=== PATIENT | female | born 1985 | race Caucasian/White ===

== ENCOUNTER 2024-08-07 17:57 | Emergency (ER) | payer OTHER, SELFPAY ==
[2024-08-07 18:08] VITALS: BP 125/81
--- NOTE | 2024-08-07 20:05 | ED.GENMED ---
History of Present Illness
General
Chief Complaint: Throat Problem
Time Seen by Provider: 08/07/24 19:00
History of Present Illness
History of Present Illness:
patient is a 38-year-old woman presenting to the emergency department with sore throat and rash. Patient states that 4 days ago she woke up with exudates on her tonsil. 3 days ago went to an urgent care tested negative for strep but was started on
amoxicillin. She felt worse 2 days ago went to her primary care doctor. She had difficulty swallowing so started on prednisone. She was told that her monotest was positive but she was also positive for strep. She has had mono before. The same day
urgent care called stating that her culture was negative. Yesterday she developed a rash to her entire body including her hands and her mouth. She did stop taking the antibiotics yesterday after the rash occurred. She does state that she also had
a oil of oregano and that an allergic reaction from it can be hypersensitivity skin reaction which she has noticed. She has been taking Benadryl with some relief. No recent travel fevers chills cough sloughing of her skin. She did notice that the
rash was on her hand almost like awvf-fuyz-mmy-mouth. She does have school-aged children. She denies any numbness tingling. I did review patient's blood work. Her antistreptolysin titer was 260. Her mono IgM was negative but her other
antibodies were positive but she does have history of mono when she was younger. She does state that these are the results that her doctor told her were positive for both strep and mono.
Past History
Past History
ED Past Medical History: Other (Pyelonephritis, eating disorder) and Other (Migraine headaches, bulimia)
ED Past Surgical History: None; Negative Appendectomy
Social History
Tobacco: Non-smoker
Alcohol: None
Drug: None
Personal: Single
Living: with family
Employment: Employed
Family History
Family History: Hypertension
Phy Exam
Physical Exam
Physical Exam:
GENERAL: in no acute distress
HEENT: normocephalic, extraocular movements intact, moist oral mucosa, erythematous posterior oropharynx
NECK: normal inspection
RESPIRATORY: no respiratory distress, clear to auscultation bilaterally
CARDIOVASCULAR: regular rate and rhythm
ABDOMEN/: soft, non-distended, non-tender to palpation, no rebound or guarding
EXTREMITIES: non-tender, no edema/swelling
NEUROLOGIC: awake and alert, moves all extremities
SKIN: warm, macular papular rash to the chest arm abdomen with the beginnings of a maculopapular rash to the bilateral hands. No obvious vesicles, mouth and eyes are clear
Course
Orders/Labs/Results
Orders:
Orders
08/07/24 20:24
Rapid Strep Group A Urgent
JACKIE Source: Throat/Pharynx
Specimen Description:
Date Specimen was Collected: 08/07/24
Time Specimen was Collected: 20:22
Throat Culture, Comprehensive Urgent
JACKIE Source: Throat/Pharynx
Specimen Description:
Date Specimen was Collected: 08/07/24
Time Specimen was Collected: 20:22
08/07/24 20:25
Gerald-Ovalle Virus Ab Panel I [S] Urgent
Gerald-Ovalle Virus VCA IgG [S] Urgent
Gerald-Ovalle Virus VCA IgM Ab [S] Urgent
Monotest Urgent
08/07/24 21:47
Prednisone [Deltasone] 40 mg PO NOW STA
Vital Signs
Initial and Last Documented VS:
Initial Vital Signs
Temp Pulse Resp BP Pulse Ox
98.5 F 88 20 125/81 100
08/07/24 18:08 08/07/24 18:08 08/07/24 18:08 08/07/24 18:08 08/07/24 18:08
Last Documented Vital Signs
Temp Pulse Resp BP Pulse Ox
98.5 F 88 20 125/81 100
08/07/24 18:08 08/07/24 18:08 08/07/24 18:08 08/07/24 18:08 08/07/24 20:05
MDM/Problems Addressed
Differential Diagnosis Includes:
Patient is a 38-year-old woman presenting to the emergency department with a rash sore throat. Vitals are unremarkable and exam does show a slightly erythematous posterior oropharynx but uvula is midline and she is protecting her airway. She does
have a maculopapular rash to her chest arms as well as the beginnings of a rash on her hands. No sloughing of her skin. Given that her symptoms have been improving and she stopped taking the antibiotics it could be mono. Especially given that she
developed a rash after started taking the amoxicillin. However given that her antistreptolysin titer was elevated but her IgM was negative will repeat culture here as well as blood testing here for further clarity. In the interim I did advise
patient to stop taking the antibiotics and to continue taking the steroids. Regarding the rash certainly could be secondary to amoxicillin with mono (though unclear if patient does have reactivation of mono given her blood work). Could also be
secondary to the oil of oregano as she does state that she is been having hypersensitivity which is a known allergic reaction from it. In the interim we will have patient keep taking steroids and Benadryl given the skin sensitivity. The rash could
also be secondary to lpxg-ekln-ypj-mouth given the location and it could be the beginnings of it. Does not seem like any sinister etiology of rash such as SJS 10 staphylococcal scalded skin syndrome or measles. After shared decision making we will
send repeat blood work for EBV as well as rapid strep and culture.
*Pulse Oximetry
SaO2: 100
Oxygen Mode of Delivery: Room air
Patient hypoxic: no (100)
*Critical Care Note
Total Time (30-74mins, 75-104mins- exclusive of procedures): Not Applicable
Update Note
Update Note:
On reevaluation patient states that her skin has become more sensitive. After shared decision making we will increase her steroids from a Medrol Dosepak to 40 mg for 5 days. Will give first dose here. Her monoscreen was negative. Her rapid strep
was negative. Strep culture pending. I did send off further antibody and antigen testing regarding the confusion the patient's initial mono even though the monoscreen here was negative. Patient advised that management will not change at this time.
Will discharge patient at this time. Ultimately the plan was to treat as an allergic reaction with the beginnings of a yext-gksj-tdf-mouth given the rash specifically on her hands. Patient aware of strict return precautions.
ED Attending Note
-
Portions of this chart may have been created with voice recognition software.� Occasional wrong word or��sound alike� substitutions may have occurred due to the inherent limitations of voice recognition software.
Discharge Plan
Departure
Patient Disposition: Home (Routine Discharge)
Date of Disposition: 08/07/24
Time of Disposition: 21:47
Patient with high blood pressure during this ER visit?: No
Discharge Problem:
Allergic reaction, Hand, foot, and mouth disease
Instructions: Allergic reaction - ED discharge instructions
Prescriptions:
New
prednisone 20 mg tablet
40 mg PO DAILY 4 Days Qty: 8 0RF
No Action
dqd50-zhob-rmmxm acid [PreNata] 1 EACH tablet,chewable
1 ea PO DAILY
L.acidoph,paracasei,B.animalis 1 EACH capsule
1 ea PO DAILY
sennosides-docusate sodium 1 TABLET tablet
1 tab PO DAILYPRN PRN (Reason: constipation) 0RF
ibuprofen 600 MG tablet
600 mg PO Q4HPRN PRN (Reason: moderate pain/cramps) 0RF
Referrals:
NONE,* [Active, Internal Medicine]
Activity Restrictions/Additional Instructions:
You were seen in the Emergency Department today for a skin rash and sore throat. While you were here we performed blood work, which was reassuring. We will call you if your strep culture is positive. Your monoscreen was negative. I did increase
your steroids to 40 mg. Your first dose was given here in the emergency department.
We would like for you to follow up with your primary care physician for further evaluation. If you experience fever, worsening of your symptoms, or develop any other new or concerning symptoms, please return to the Emergency Department immediately.
Please see the attached sheet for additional information.
Interventions
Interventions:
*Risk Screen - Suicide Last Done: 08/07/24 18:08
*General Assessment Last Done: 08/07/24 18:08
*Neglect/Abuse Screening Last Done: 08/07/24 18:08
Discharge Date and Time
Print Language: ERITREAN
[2024-08-07 21:00] LABS: Monotest Negative (Negative)
[2024-08-07] MEDS: DELTASONE 40 MG PO (21:58)
[2024-08-07 22:07] VITALS: BP 132/71
[2024-08-10 04:35] LABS: EBV-EA (D) Ab IgG 42.8 U/mL (0.0-10.9); EBV-NA IgG >600.0 U/mL (0.0-21.9); EBV-VCA IgM Antibodies <10.0 U/mL (0.0-43.9)
== END 2024-08-07 22:08 | disposition home or self-care (01) ==
LOC: EMR 17:57
PROVIDERS: EMERGENCY PHYSICIAN Student in an Organized Health Care Education/Training Program; FAMILY PHYSICIAN Family Medicine Sports Medicine
DX: R07.0 Pain in throat (principal); R21 Rash and other nonspecific skin eruption
CPT/HCPCS: 99282; 86308; 86663; 86664; 86665; 87070; 87880

== ENCOUNTER 2024-08-09 16:11 | Emergency (ER) | payer OTHER, SELFPAY ==
[2024-08-09 16:15] VITALS: BP 128/82
--- NOTE | 2024-08-09 18:38 | ED.GENMED ---
History of Present Illness
<SUDHA Franklin - Last Filed: 08/09/24 20:39>
General
Chief Complaint: Skin Problem
Source: patient
Exam Limitations: none
Time Seen by Provider: 08/09/24 17:46
Nursing documentation reviewed up to this point in time: agreed with
History of Present Illness
History of Present Illness:
Patient is a 38 yr old female who presents back to the ER for evaluation. Patient initially started with a sore throat a week ago was initially placed on amoxicillin for strep but after following up with her doctor her strep test was negative and
she stopped amoxicillin on Sunday. On Sunday was given a dose of prednisone by her family doctor. She presented to the ER on for rash and was given 1 dose of prednisone here in the ER. She was given a prescription but told that she
could hold off if she wanted to and has not taken the steroid since.
She presents back today with worsening rash and hives to her back and redness to her ears and face.
Her mono and strep test were both negative from the ER visit 2 days ago.
She has not had any fevers she does have a very minimal sore throat now. She denies any difficulty breathing denies any lip or tongue swelling. Denies any neck pain or for sensitivity.
Past History
<SUDHA Franklin - Last Filed: 08/09/24 20:39>
Past History
ED Past Medical History: Other (Pyelonephritis, eating disorder) and Other (Migraine headaches, bulimia)
ED Past Surgical History: None; Negative Appendectomy
Social History
Tobacco: Non-smoker
Alcohol: None
Drug: None
Personal: Single
Living: with family
Employment: Employed
Family History
Family History: Hypertension
Review of Systems
<SUDHA Franklin - Last Filed: 08/09/24 20:39>
Review of Systems
Allergies reviewed?: Yes
All Other Systems: ROS reviewed and negative except as documented in HPI and ROS
Constitutional: Reports no symptoms
Phy Exam
<SUDHA Franklin - Last Filed: 08/09/24 20:39>
General Physical Exam
General Presentation: no apparent distress
General age: appears stated age
General Skin: warm and dry
General Habitus: normal
General Mental: alert
General Hydration: appears well hydrated
ENT Exam
ENT Exam: EOMI, pharynx normal, neck supple and other (No lip or tongue swelling)
Additional ENT: pt with redness to b/l auricles
Cardiovascular Exam
Cardiovascular Exam: regular rate/rhythm, no murmur and normal peripheral pulses
Pulmonary Exam
Pulmonary Exam: lungs clear, no respiratory distress, no wheezing and no cough
Neurological Exam
Neurological Exam: alert and oriented x3
Musculoskeletal Exam
Musculoskeletal Exam: full ROM and other (No joint swelling)
Skin Exam
Skin Exam: normal color, warm/dry and other (Scattered hives to back, redness to eyebrows redness/hives to upper chest/abdomen)
Course
<SUDHA Franklin - Last Filed: 08/09/24 20:39>
Orders/Labs/Results
Orders:
Orders
08/09/24 19:45
Dexamethasone Pf [Decadron] 10 mg PO NOW STA
Famotidine [Pepcid] 20 mg PO NOW STA
Vital Signs
Initial and Last Documented VS:
Initial Vital Signs
Temp Pulse Resp BP Pulse Ox
98.4 F 81 18 128/82 99
08/09/24 16:15 08/09/24 16:15 08/09/24 16:15 08/09/24 16:15 08/09/24 16:15
Last Documented Vital Signs
Temp Pulse Resp BP Pulse Ox
98.4 F 69 16 112/74 100
08/09/24 16:15 08/09/24 20:34 08/09/24 20:34 08/09/24 20:34 08/09/24 20:34
Reconciler consulted with Physician
Reconciler consulted with physician?: Yes
Name of Physician Consulted: Dr Barber
<Martínez Barber, - Last Filed: 08/09/24 20:25>
Orders/Labs/Results
Orders:
Orders
08/09/24 19:45
Dexamethasone Pf [Decadron] 10 mg PO NOW STA
Famotidine [Pepcid] 20 mg PO NOW STA
Vital Signs
Initial and Last Documented VS:
Initial Vital Signs
Temp Pulse Resp BP Pulse Ox
98.4 F 81 18 128/82 99
08/09/24 16:15 08/09/24 16:15 08/09/24 16:15 08/09/24 16:15 08/09/24 16:15
Last Documented Vital Signs
Temp Pulse Resp BP Pulse Ox
98.4 F 69 16 112/74 100
08/09/24 16:15 08/09/24 20:34 08/09/24 20:34 08/09/24 20:34 08/09/24 20:34
<SUDHA Farnklin - Last Filed: 08/09/24 20:39>
MDM/Problems Addressed
Differential Diagnosis Includes:
Not limited to viral syndrome, urticaria
MDM/Problems Addressed:
Patient is in no acute distress she has been tested for mono and strep both of which were negative. She started out with a sore throat a week ago and has developed hives. Symptoms are likely from viral syndrome. She has no difficulty breathing
pharynx is normal no meningismus lungs are clear afebrile not hypoxic and no acute distress. Patient was given a dose of oral prednisone here Pepcid. Patient did see telehealth and has a prescription for steroids at the pharmacy for a steroid
taper. I did advise patient to start this tomorrow along with Pepcid. Case discussed with Dr. Barber who evaluated patient agrees with assessment and plan.
She is to return if any worsening of symptoms
<SUDHA Franklin - Last Filed: 08/09/24 20:39>
*Pulse Oximetry
SaO2: 99
Oxygen Mode of Delivery: Room air
Patient hypoxic: no
*Critical Care Note
Total Time (30-74mins, 75-104mins- exclusive of procedures): Not Applicable
ED Attending Note
<SUDHA Franklin - Last Filed: 08/09/24 20:39>
-
Portions of this chart may have been created with voice recognition software.� Occasional wrong word or��sound alike� substitutions may have occurred due to the inherent limitations of voice recognition software.
<Martínez Barber DO - Last Filed: 08/09/24 20:25>
ED Attending Note
Patient seen and examined by attending physician: Yes
I performed the substantive portion of visit, reviewed & personally made and approve the management plan that is documented in note by myself or LUIS ENRIQUE.: Yes
ED Attending Note:
Presents with urticarial rash which is diffuse. No airway involvement. Lungs are clear.
Suspect the patient is having urticarial rash related to a recent viral illness. Agree with Madiha's treatment plan.
Discharge Plan
Departure
Patient Disposition: Home (Routine Discharge)
Date of Disposition: 08/09/24
Time of Disposition: 20:32
Patient with high blood pressure during this ER visit?: No
Condition: Fair
Covid-19: Not Applicable
Discharge Problem:
Acute viral syndrome, Urticaria
Instructions: Hives
Prescriptions:
No Action
yao48-gvnu-uifht acid [PreNata] 1 EACH tablet,chewable
1 ea PO DAILY
L.acidoph,paracasei,B.animalis 1 EACH capsule
1 ea PO DAILY
sennosides-docusate sodium 1 TABLET tablet
1 tab PO DAILYPRN PRN (Reason: constipation) 0RF
ibuprofen 600 MG tablet
600 mg PO Q4HPRN PRN (Reason: moderate pain/cramps) 0RF
prednisone 20 mg tablet
40 mg PO DAILY 4 Days Qty: 8 0RF
Referrals:
Miguel Garsia DO [Family Provider, Family Practice]
Activity Restrictions/Additional Instructions:
As discussed symptoms are likely from viral syndrome. You were given 1 dose of oral Decadron here in the ER and 1 dose of Pepcid.
Start the prescription of steroids that you were given by the telehealth physician tomorrow. In addition you may continue to take Pepcid. Follow-up with family doctor as needed . return if any worsening of symptoms.
Interventions
Interventions:
*Risk Screen - Suicide Last Done: 08/09/24 16:15
*General Assessment Last Done: 08/09/24 17:43
*Neglect/Abuse Screening Last Done: 08/09/24 16:15
*ED- Fall Risk Assessment Last Done: 08/09/24 17:43
*ED COVID-19 Vaccine History Last Done: 08/09/24 17:43
*Nursing Disposition Last Done: 08/09/24 20:36
ED-Skin Assessment Last Done: 08/09/24 20:36
Discharge Date and Time
Print Language: MOHAWK
[2024-08-09] MEDS: PEPCID 20 MG PO (19:49)
[2024-08-09] MEDS: DECADRON 10 MG PO (19:50)
[2024-08-09 20:34] VITALS: BP 112/74
== END 2024-08-09 20:39 | disposition home or self-care (01) ==
LOC: EMR 16:11
PROVIDERS: EMERGENCY PHYSICIAN Emergency Medicine; FAMILY PHYSICIAN Family Medicine Sports Medicine
DX: L50.9 Urticaria, unspecified (principal); B34.9 Viral infection, unspecified; J02.9 Acute pharyngitis, unspecified; G43.909 Migraine, unspecified, not intractable, without status migrainosus; E03.9 Hypothyroidism, unspecified; F50.20 Bulimia nervosa, unspecified; Z88.2 Allergy status to sulfonamides
CPT/HCPCS: 99283

== ENCOUNTER 2024-10-21 10:49 | Emergency (ER) | payer OTHER, SELFPAY ==
[2024-10-21 10:56] VITALS: BP 110/72
[2024-10-21 11:34] LABS: Hematocrit 37.3 % (37.0-47.0); Hemoglobin 12.5 g/dL (12.0-16.0); Mean Corp Hgb Conc. 33.5 g/dL (33.0-37.0); Mean Corpuscular Volume 92.6 fL (81.0-99.0); Nucleated Red Blood Cells % 0 %; Platelet Count 197 10^3/uL (130-400); Red Cell Dist. Width 14.1 % (11.5-14.5)
[2024-10-21 11:43] LABS: HCG, Serum Qualitative Screen Negative
[2024-10-21 11:53] LABS: Urine Character Clear (Clear)
[2024-10-21 12:04] LABS: ALT (SGPT) 25 U/L (0-35); AST (SGOT) 19 U/L (14-36); Albumin 4.5 g/dl (3.5-5.0); Alkaline Phosphatase 61 U/L (38-126); Blood Urea Nitrogen 21 mg/dl (7-17); Calcium 9.5 mg/dl (8.4-10.2); Carbon Dioxide 23 mmol/L (22-30); Chloride 110 mmol/L (98-107); Glucose 91 mg/dl (70-99); Lipase 77 U/L (23-300); Potassium 4.0 mmol/L (3.5-5.1); Sodium 139 mmol/L (135-145); Total Protein 7.1 g/dl (6.3-8.2); eGFR > 60.00
--- NOTE | 2024-10-21 12:34 | ED.GENMED ---
History of Present Illness
<Chet Meneses PA-C - Last Filed: 10/21/24 16:14>
General
Chief Complaint: Abdominal Pain
Source: patient
Exam Limitations: none
Time Seen by Provider: 10/21/24 12:05
History of Present Illness
History of Present Illness:
38-year-old female presents with right-sided abdominal discomfort since 4 days ago she describes as a bubbling sensation in this area. The pain is not made worse with eating. The pain has been intermittent since its onset does not radiate to the
back not pleuritic in nature. She deals with constipation but has been moving her bowels. No urinary symptoms. She also notes occasional vaginal spotting. She could be . No fevers. No chest pain or shortness of breath.
Past History
<BRANDIE Kiran Last Filed: 10/21/24 16:14>
Past History
ED Past Medical History: Other (Pyelonephritis, eating disorder) and Other (Migraine headaches, bulimia)
ED Past Surgical History: None; Negative Appendectomy
Social History
Tobacco: Non-smoker
Alcohol: None
Drug: None
Personal: Single
Living: with family
Employment: Employed
Family History
Family History: Hypertension
Phy Exam
<BRANDIE Kiran Last Filed: 10/21/24 16:14>
Physical Exam
Physical Exam:
General: Well appearing female, NAD
HEENT: NC/AT
Heart: RRR, no murmurs
Lungs; CTA
Abdomen is soft but tender to the right upper quadrant no guarding nondistended no costovertebral angle tenderness
Extremities: No cyanosis or edema
Course
<BRANDIE Kiran Last Filed: 10/21/24 16:14>
Orders/Labs/Results
Orders:
Orders
10/21/24 10:59
EKG [Electrocardiogram (*1)] Urgent
Reason for Study: Palpitations
10/21/24 11:00
EKG- Treatment ONCE
Test Result ONCE
10/21/24 11:14
CBC/With Diff [Complete Blood Count/With Diff] Urgent
CMP [Comprehensive Metabolic Panel] Urgent
HCG, Serum Qualitative Screen Urgent
Lipase Urgent
10/21/24 11:18
Urinalysis Reflex To Culture Urgent
Date Specimen was Collected: 10/21/24
Time Specimen was Collected: 11:00
10/21/24 12:23
US Abdomen Complete/Upper Urgent
Comment:
Reason For Exam: ruq pain
10/21/24 14:41
Iohexol [Omnipaque] See Protocol PO NOW STA
10/21/24 16:12
CT Abd/pel (oral only)-[facility] Only Urgent
Comment:
Reason For Exam: abdominal pain
Iohexol [Omnipaque] See Protocol PO NOW STA
10/21/24 18:09
Lyme Progressive Urgent
Abnormal Lab Results
10/21/24
11:14
RBC 4.03 L 10^6/uL
(4.20-5.40)
MPV 10.6 H fL
(7.4-10.4)
Chloride 110 H mmol/L
(98-107)
BUN 21 H mg/dl
(7-17)
10/21/24 11:14
10/21/24 11:14
Vital Signs
Initial and Last Documented VS:
Initial Vital Signs
Temp Pulse Resp BP Pulse Ox
98.3 F 79 14 110/72 98
10/21/24 10:56 10/21/24 10:56 10/21/24 10:56 10/21/24 10:56 10/21/24 10:56
Last Documented Vital Signs
Temp Pulse Resp BP Pulse Ox
98.3 F 79 14 110/72 98
10/21/24 10:56 10/21/24 10:56 10/21/24 10:56 10/21/24 10:56 10/21/24 12:38
<Krysta England NP - Last Filed: 10/21/24 18:18>
Orders/Labs/Results
Orders:
Orders
10/21/24 10:59
EKG [Electrocardiogram (*1)] Urgent
Reason for Study: Palpitations
10/21/24 11:00
EKG- Treatment ONCE
Test Result ONCE
10/21/24 11:14
CBC/With Diff [Complete Blood Count/With Diff] Urgent
CMP [Comprehensive Metabolic Panel] Urgent
HCG, Serum Qualitative Screen Urgent
Lipase Urgent
10/21/24 11:18
Urinalysis Reflex To Culture Urgent
Date Specimen was Collected: 10/21/24
Time Specimen was Collected: 11:00
10/21/24 12:23
US Abdomen Complete/Upper Urgent
Comment:
Reason For Exam: ruq pain
10/21/24 14:41
Iohexol [Omnipaque] See Protocol PO NOW STA
10/21/24 16:12
CT Abd/pel (oral only)-[facility] Only Urgent
Comment:
Reason For Exam: abdominal pain
Iohexol [Omnipaque] See Protocol PO NOW STA
10/21/24 18:09
Lyme Progressive Urgent
Abnormal Lab Results
10/21/24
11:14
RBC 4.03 L 10^6/uL
(4.20-5.40)
MPV 10.6 H fL
(7.4-10.4)
Chloride 110 H mmol/L
(98-107)
BUN 21 H mg/dl
(7-17)
10/21/24 11:14
10/21/24 11:14
Vital Signs
Initial and Last Documented VS:
Initial Vital Signs
Temp Pulse Resp BP Pulse Ox
98.3 F 79 14 110/72 98
10/21/24 10:56 10/21/24 10:56 10/21/24 10:56 10/21/24 10:56 10/21/24 10:56
Last Documented Vital Signs
Temp Pulse Resp BP Pulse Ox
98.3 F 79 14 110/72 98
10/21/24 10:56 10/21/24 10:56 10/21/24 10:56 10/21/24 10:56 10/21/24 12:38
<Chet Meneses PA-C - Last Filed: 10/21/24 16:14>
MDM/Problems Addressed
Differential Diagnosis Includes:
Right sided abdominal pain. Consider biliary colic versus gastritis or pancreatitis versus constipation. I would not expect appendicitis given the location of pain. Urinalysis pending. test was negative. Liver functions are normal
lipase is normal. Ultrasound abdomen pending
<Chet Meneses PA-C - Last Filed: 10/21/24 16:14>
*Pulse Oximetry
SaO2: 98
Oxygen Mode of Delivery: Room air
<Krysta England NP - Last Filed: 10/21/24 18:18>
*Radiology
Radiology exam reviewed: radiology read reviewed
*Pulse Oximetry
Patient hypoxic: no
*Critical Care Note
Total Time (30-74mins, 75-104mins- exclusive of procedures): Not Applicable
<BRANDIE Kiran Last Filed: 10/21/24 16:14>
Update Note
Update Note:
Ultrasound negative labs reviewed without any significant finding. Given ongoing discomfort in the abdomen CT was ordered with oral and IV contrast. Patient has been drinking her oral contrast. An IV was started however soon as the IV was placed
she was complaining of severe pain to the left arm. Upon further questioning the patient has been dealing with arm pain in both arms for the last several months. She has been worked up for this. No answer has been provided. Patient cannot
tolerate the IV in the arm so this was removed. CT will be performed with oral contrast only
<Krysta England NP - Last Filed: 10/21/24 18:18>
Update Note
Update Note:
Ultrasound negative labs reviewed without any significant finding. Given ongoing discomfort in the abdomen CT was ordered with oral and IV contrast. Patient has been drinking her oral contrast. An IV was started however soon as the IV was placed
she was complaining of severe pain to the left arm. Upon further questioning the patient has been dealing with arm pain in both arms for the last several months. She has been worked up for this. No answer has been provided. Patient cannot
tolerate the IV in the arm so this was removed. CT will be performed with oral contrast only
CT report reviewed with patient and mother. No acute findings on CT. +constipation identified. Discussed this with her, will take miralax at home. She is also concerned about her chronic bilateral upper extremitiy pain, numbness, tingling. She
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 She has not seen her primary for this but does have an appointment next week. SHe will address with her PCP. Given number for ortho follow up. SHe is also requesting a
lyme test today. States she has never been tested and a pos result may explain her upper extremity symptoms. Lyme titer ordered. SHe is discharged home. WIll follow up [facility] PCP as scheduled.
ED Attending Note
<Chet Meneses PA-C - Last Filed: 10/21/24 16:14>
-
Portions of this chart may have been created with voice recognition software.� Occasional wrong word or��sound alike� substitutions may have occurred due to the inherent limitations of voice recognition software.
Discharge Plan
Departure
Patient Disposition: Home (Routine Discharge)
Date of Disposition: 10/21/24
Time of Disposition: 18:16
Patient with high blood pressure during this ER visit?: Yes
Condition: Fair
Covid-19: Not Applicable
Discharge Problem:
Abdominal pain
Instructions: Abdominal Pain
Prescriptions:
No Action
no.31-mpoo-gpzof acid [PreNata] 1 EACH tablet,chewable
1 ea PO DAILY
L.acidoph,paracasei,B.animalis 1 EACH capsule
1 ea PO DAILY
sennosides-docusate sodium 1 TABLET tablet
1 tab PO DAILYPRN PRN (Reason: constipation) 0RF
ibuprofen 600 MG tablet
600 mg PO Q4HPRN PRN (Reason: moderate pain/cramps) 0RF
prednisone 20 mg tablet
40 mg PO DAILY 4 Days Qty: 8 0RF
Referrals:
Monster Romero MD [Active, Orthopedics] - Next open appointment
Berto Bose CRNP [Family Provider, Internal Medicine] - Keep scheduled appt
Activity Restrictions/Additional Instructions:
Return to the emergency department immediately for any changes in/worsening of your abdominal symptoms.
Interventions
Interventions:
*Risk Screen - Suicide Last Done: 10/21/24 10:56
*General Assessment Last Done: 10/21/24 10:56
*Neglect/Abuse Screening Last Done: 10/21/24 10:56
*ED- Fall Risk Assessment Last Done: 10/21/24 11:58
*ED COVID-19 Vaccine History Last Done: 10/21/24 10:56
FC-Jwsqpd-Hxsfkczmog Assessment Last Done: 10/21/24 11:58
Discharge Date and Time
Print Language: FRENCH
[2024-10-21] MEDS: OMNIPAQUE 50 ML PO (14:51)
[2024-10-21 18:35] VITALS: BP 118/76
[2024-10-23 15:22] LABS: Lyme Antibody Screen, EIA Negative (Negative)
== END 2024-10-21 18:35 | disposition home or self-care (01) ==
LOC: EMR 10:49
PROVIDERS: Emergency Medicine; Nurse Practitioner; EMERGENCY PHYSICIAN Emergency Medicine; FAMILY PHYSICIAN Nurse Practitioner Adult Health
DX: K59.00 Constipation, unspecified (principal); R10.11 Right upper quadrant pain
CPT/HCPCS: 99284; 74176; 76700; 80053; 81003; 83690; 84703; 85025; 86618; 93005

== ENCOUNTER → 2024-11-27 06:58 | Outpatient (REF) | payer OTHER, SELFPAY | LOC: RAD 06:58 | PROVIDERS: ATTENDING PHYSICIAN Nurse Practitioner Adult Health | DX: N64.52 Nipple discharge (principal); R51.9 Headache, unspecified; H53.9 Unspecified visual disturbance; R53.83 Other fatigue; H93.8X2 Other specified disorders of left ear; R20.2 Paresthesia of skin; R52 Pain, unspecified; L65.9 Nonscarring hair loss, unspecified | CPT/HCPCS: 70470; Q9967 ==

== ENCOUNTER → 2024-12-25 08:18 | Outpatient (REF) | payer OTHER, SELFPAY | LOC: HWRCS 08:18 | PROVIDERS: ATTENDING PHYSICIAN Internal Medicine Cardiovascular Disease; FAMILY PHYSICIAN Nurse Practitioner Adult Health | DX: R00.2 Palpitations (principal) | CPT/HCPCS: 93306 ==